=== PATIENT | male | born 1995 | race Caucasian/White ===

== ENCOUNTER 2017-03-10 20:29 | Emergency (ER) | payer MEDICAID ==
[~2017-03-10] VITALS: Ht 182.9 cm; Wt 73.0 kg
[2017-03-10] MEDS ORDERED: HYDROCODONE/APAP 7.5/325MG 1 TAB TABLET PO ONE (21:30)
[2017-03-11] MEDS ORDERED: BACITRACIN ZINC OINT UDPKT TOP ONE
[2017-03-11] MEDS ORDERED: LIDOCAINE HCL 1% 20ML VIAL (Pyxis) INJ MC ONE
[2017-03-11 02:00] VITALS: BP 129/68
== END 2017-03-11 02:00 | disposition home or self-care (01) ==
LOC: ER 20:35
DX: S02.2XXA Fracture of nasal bones, initial encounter for closed fracture (principal); M79.605 Pain in left leg; M79.604 Pain in right leg; V43.52XA Car driver injured in collision with other type car in traffic accident, initial encounter; Y93.89 Activity, other specified; Y99.8 Other external cause status; Y92.89 Other specified places as the place of occurrence of the external cause
CPT/HCPCS: 12011; 70450; 70486; 72125; 99284; J3490; Z7610